=== PATIENT | female | born 1965 | race Caucasian/White ===

== ENCOUNTER 2016-06-02 18:53 | Inpatient (IN) ==
--- NOTE | 2016-06-02 19:16 | PROVIDER DOCUMENTATION ---
HPI-Abdominal Pain/GI Problem - General Chief Complaint: Abdominal Pain Stated Complaint: abd pain Time Seen by Provider: 06/02/16 19:11 Source: EMS Allergies/Adverse Reactions: Patient Allergies Allergy/AdvReac Type Severity Reaction Status Date / Time Penicillins Allergy Severe Unknown Verified 06/02/16 19:55 - History of Present Illness-ABD Nature of Presenting Problems: 50 y/o f presents to the ed with a distended abdomen due to liver disease. pt was brought in by ems for abdominal pain and bilateral lower extremity edema. upon arrival pt was not able to give us a hx. pt is altered, could not answer questions. Abdominal Pain Onset Location: reports: generalized abdomen Pain Radiation: reports: no radiation Quality of Pain: reports: pressure Severity in ED: reports: moderate Onset/Duration: reports: other (X 1 month) Similar Symptoms Previously?: Yes Recently seen or treated by another doctor?: No Review of Systems - Adult - REVIEW OF SYSTEMS - ADULT ROS:: limited per condition Constitutional: denies: chills, fever Gastrointestinal: reports: abdominal pain. denies: vomiting Neurological: denies: slurred speech, syncope Past History - Adult - PAST MEDICAL HISTORY-ADULT Review of Records: reports: Old Records Reviewed, Nursing Assessment Review, Medications Reviewed Respiratory: reports: asthma Neurological: reports: Seizures/Epilepsy - PRIOR SURGERIES/PROCEDURES Surgical/Procedure History: reports: - IMMUNIZATION STATUS Childhood Immunizations: See Nurse Assessment Flu Vaccine: See Nurse Assessment - SOCIAL HISTORY Smoking: cigarettes, less than 1 pack/day Provider spent 3-5 mins advising pt. on dangers of tobacco.: Discussed manners to quit use, and f/u contacts for add'l counseling. Substance Use: alcohol Alcohol Use Frequency: 5-6 times a week Physical Exam-General - PHYSICAL EXAM-ADULT Initial Vital Signs Reviewed: Yes - CONSTITUTIONAL General Appearance: lethargic, slow to respond, other (ill appearance) - EYES Eyes: PERRL/EOMI, pink conjunctivae - HEAD, EARS, NOSE, MOUTH & THROAT HENMT: normocephalic/atraumatic, moist mucous membranes, normal ENT inspection, TMs normal - RESPIRATORY Respiratory: chest non-tender, lungs clear, normal breath sounds - CARDIOVASCULAR Cardiovascular: normal peripheral pulses, regular rate, rhythm - GASTROINTESTINAL (ABDOMEN) Abdominal Exam: normal bowel sounds, distended, tenderness - MUSCULOSKELETAL Back Exam: normal inspection - SKIN Integumentary: other (grayish) - PSYCHIATRIC Psych/Mental Status: disoriented x 3 Progress - PLAN OF CARE/RESULTS Progress/Plan/Lab Results: plan of care: labs, imaging,admit as inpatient Laboratory Tests 06/02/16 06/02/16 06/02/16 19:23 19:23 19:23 WBC 4.11 L RBC 3.30 L Hgb 11.0 L Hct 32.9 L MCV 99.7 H MCH 33.3 H MCHC 33.4 RDW Std Deviation 15.3 H Plt Count 423 H MPV 9.2 Immature Gran % (Auto) 0.0 Neut % (Auto) 71.8 Lymph % (Auto) 16.8 L Barnwell % (Auto) 11.2 H Eos % (Auto) 0.0 Baso % (Auto) 0.2 Immature Gran # (Auto) 0.00 Neut # (Auto) 2.95 Lymph # (Auto) 0.69 L Barnwell # (Auto) 0.46 Eos # (Auto) 0.00 Baso # (Auto) 0.01 PT INR PTT (Actin FS) Sodium 128 L Potassium 3.2 L Chloride 89 L Carbon Dioxide 21 L Anion Gap 18 BUN 22 Creatinine 2.5 H Estimated GFR/1.73 m2 20 BUN/Creatinine Ratio 9 Glucose 127 H Calculated Osmolality 262 Calcium 7.8 L Total Bilirubin 1.40 H AST 35 H ALT 18 Alkaline Phosphatase 418 H Ammonia Total Protein 5.7 L Albumin 1.7 L Globulin 4.0 Albumin/Globulin Ratio 0.4 Lipase 6 L Plasma/Serum Ethyl Alc 06/02/16 06/02/16 19:23 19:23 WBC RBC Hgb Hct MCV MCH MCHC RDW Std Deviation Plt Count MPV Immature Gran % (Auto) Neut % (Auto) Lymph % (Auto) Barnwell % (Auto) Eos % (Auto) Baso % (Auto) Immature Gran # (Auto) Neut # (Auto) Lymph # (Auto) Barnwell # (Auto) Eos # (Auto) Baso # (Auto) PT 12.7 H INR 1.20 PTT (Actin FS) 26.4 Sodium Potassium Chloride Carbon Dioxide Anion Gap BUN Creatinine Estimated GFR/1.73 m2 BUN/Creatinine Ratio Glucose Calculated Osmolality Calcium Total Bilirubin AST ALT Alkaline Phosphatase Ammonia 115 H Total Protein Albumin Globulin Albumin/Globulin Ratio Lipase Plasma/Serum Ethyl Alc Orders Category Date Time Status CHEST-PORTABLE [RAD] Stat Exams 06/02/16 20:11 Taken HEAD W/O CONTRAST [CT] Stat Exams 06/02/16 19:19 Taken ALCOHOL BLOOD Stat Lab 06/02/16 19:23 Completed AMMONIA [CHEM] Stat Lab 06/02/16 19:23 Completed CBC WITH ELECTRONIC DIFF [HEME] Stat Lab 06/02/16 19:23 Completed CMP [COMPREHENSIVE METABOLIC PANEL] [CHEM] Stat Lab 06/02/16 19:23 Completed LIPASE [CHEM] Stat Lab 06/02/16 19:23 Completed PROTIME WITH INR [COAG] Stat Lab 06/02/16 19:23 Completed PTT [COAG] Stat Lab 06/02/16 19:23 Completed ROUTINE CULTURE [RM] Stat Lab 06/02/16 19:28 Uncollected UA NIMS W/REFLEX CULT [URINALYSIS] Stat Lab 06/02/16 19:12 Uncollected Lidocaine 1% [Xylocaine 1%] Med 06/02/16 20:34 Discontinued 20 ml INJ NOW ONE Lidocaine 1% [Xylocaine 1%] Med 06/02/16 20:35 Discontinued 40 ml .ROUTE .STK-MED ONE Ondansetron [Zofran] Med 06/02/16 20:25 Discontinued 8 mg IV NOW ONE Vital Signs - 24 hr 06/02/16 19:05 Temperature 97.6 F Pulse Rate 138 H Respiratory 20 Rate Blood Pressure 92/68 O2 Sat by Pulse 98 Oximetry - CT/MRI 1 MRI Study: Head MRI Results: NAD - CONSULTS/PCP/HOSPITALIST Notification #1 *Consult/PCP/Hospitalist*: Dr. Menjivar Time Discussed: 20:01 Consult Disposition: Admit Procedures - ADDITIONAL PROCEDURES Additional Procedure: Paracentesis (drained 40 cc) Departure - Departure Time of Disposition Order: 20:48 DIAGNOSIS: Hepatic encephalopathy, Alcoholic liver disease Ascites Qualifiers: Ascites type: other type Qualified Code(s): R18.8 - Other ascites Disposition: ADMITTED INPATIENT 09 Certified Medical Emergency: Emergent Condition: Stable Attestation - Scribe Verification/Attestation Scribe:: Jazmin Ferreira Acting as Scribe for:: Benito Carrington Scribe documention review:: This chart was documented by a scribe and accurately reflects the service the provider performed and the decisions made by the provider.
[2016-06-02 19:45] LABS: MANUAL DIFF NEEDED? NO
[2016-06-02 19:49] LABS: BASO% 0.2 % (0.0-0.8); HEMATOCRIT 32.9 % (37.0-47.0); LYMPH# 0.69 X1000 (1.2-3.4); LYMPH% 16.8 % (20.5-51.1); MCH 33.3 PG (27-31); MCHC 33.4 g/dL (33-37); MCV 99.7 FL (81-99); MONO# 0.46 X1000 (0.11-0.59); MONO% 11.2 % (1.7-9.3); MPV 9.2 FL (7.4-10.4); NEUT% 71.8 % (42.2-75.2); PLT 423 X1000 (130-400)
[2016-06-02 19:54] LABS: INR 1.2; PROTIME 12.7 Seconds (9.2-11.7); PTT 26.4 Seconds (22.0-36.0)
[2016-06-02 20:06] LABS: ALBUMIN 1.7 g/dL (3.5-5.0); CALCIUM 7.8 mg/dL (8.8-10.2); POTASSIUM 3.2 mmol/L (3.5-5.1); TOTAL BILIRUBIN 1.4 mg/dL (0.20-1.00); TOTAL PROTEIN 5.7 g/dL (6.3-8.3)
[2016-06-02] MEDS ORDERED: ZOFRAN IV ONE (20:25)
[2016-06-02] MEDS ORDERED: XYLOCAINE 1% INJ ONE (20:34)
[2016-06-02] MEDS ORDERED: XYLOCAINE 1% ONE (20:35)
[2016-06-02] MEDS ORDERED: SODIUM CHLORIDE 0.9% INJ ONE ×2 (20:53→21:37)
[2016-06-02] MEDS ORDERED: PROTONIX IV ONE (20:53)
[2016-06-02] MEDS ORDERED: M.V.I.-12 10 ML, FOLIC ACID 1 MG, MAGNESIUM SULFATE 1 GM, THIAMINE 100 MG in NS 1,000 ML IV ONE (21:37)
[2016-06-02] MEDS ORDERED: LEVAQUIN 750 MG/D5W 150 ML IV ONE (21:37)
[2016-06-02] MEDS: PROTONIX IV SCH (21:45)
[2016-06-02] MEDS ORDERED: THIAMINE IM SCH (21:45)
[2016-06-02] MEDS ORDERED: ALBUMIN 25% IV ONE (21:54)
[2016-06-02] MEDS ORDERED: POTASSIUM CHLORIDE 10 MEQ/SWI 100 ML IV ONE (21:57)
[2016-06-02] MEDS ORDERED: LEVOPHED 8 MG in D5 1/2 NS 250 ML IV SCH (22:00)
--- NOTE | 2016-06-02 22:23 | Diag Imaging Result Document ---
PROCEDURE NAME: HEAD W/O CONTRAST - 06/02/2016 STUDY: CT brain without. No parenchymal hemorrhage. No epidural or subdural hematoma. No subarachnoid hemorrhage. No mass identified on this noncontrasted exam. No hydrocephalus. No sinus opacification. No air fluid levels. IMPRESSION: 1. No hemorrhage. 2. Negative brain CT without contrast. A preliminary report was given at 8:06 p.m.
--- NOTE | 2016-06-02 23:05 | HISTORY AND PHYSICAL ---
PRIMARY CARE PHYSICIAN: No primary care physician. REASON FOR ADMISSION: Progressive weakness and abdominal distention with 2-day history of confusion. HISTORY OF PRESENT ILLNESS: Ms. Rosalie Faulkner is a 50-year-old lady with past medical history of alcoholic cirrhosis, atrial fibrillation, COPD, who was last admitted here in November 2015 for early sepsis and hepatic encephalopathy. She is brought in today by her mother whom she lives with and her son when they noticed that over the course of today she was very lethargic, unable to respond, difficult to arouse and very confused. Prior to this for the last 2-3 weeks, she has been having progressive abdominal distention and lower extremity swelling. She has been trying to ambulate with a walker the last few days. Family denies any hematemesis, coffee grounds , no bleeding per rectum or melanotic stools. No fever or chills noted. No complaints of abdominal pain. They state that she has been taking her medication and that her last alcohol drink was a few weeks ago. No seizure activity. No focal weakness, numbness or tingling per the mother. No fever or chills recorded. No hematuria or bleeding from any orifice per the mother. REVIEW OF SYSTEMS: Very limited due to the patient's current cognitive state. ALLERGIES: Penicillin. HOME MEDICATIONS: Folic acid, magnesium, thiamine, zinc sulfate. FAMILY HISTORY: Dad of alcoholic cirrhosis. No history of diabetes or heart disease in 1st degree relatives. SOCIAL HISTORY: Patient was still drinking a pint of liquor up until 2 to 3 weeks ago, smokes a pack a day. Still lives with her mother. SURGICAL HISTORY: , back surgery, breast biopsy. LABORATORY WORK: Her WBC 4000, hemoglobin and hematocrit 11 and 32. Platelets 423,000. Sodium 128, potassium 3.2, BUN 22, creatinine 2.5. Last creatinine on record was in November and was 7.5, anion gap is 18, glucose 127, calcium 7.8, total bilirubin 1.4. Alkaline phosphatase 418, ammonia 115, albumin is 1.7, total protein 5.7, lipase is normal. PT PTT INR 1.2. Alcohol level is undetected. Ascitic fluid was tapped and results are pending. PHYSICAL EXAMINATION: GENERAL: Chronically ill, cachectic middle-aged woman who appears older than stated age. The patient is drowsy, does not respond to her name. With sternal rub she may move her arms occasionally. VITAL SIGNS: Blood pressure 72/62, heart rate 139, respirations 19, she is afebrile, 96% on room air. HEENT: Head normocephalic, atraumatic. Eyes, the patient is PERRL, EOMI. She is anicteric. ENT and oropharyngeal exam could not be evaluated, because patient is very drowsy and not cooperative. No signs of cyanosis noted. NECK: Supple. No JVD or carotid bruit. No thyromegaly. SKIN: Turgor appears to be slightly diminished. CHEST: Clear to auscultation. Good air entry in both lung lazar. CARDIOVASCULAR: First and second heart sounds heard. No gallops, murmurs or rubs. Rhythm is regular. ABDOMEN: Distended. No guarding. No facial grimacing on palpation. No mass or organomegaly appreciated. Bowel sounds are not heart. RECTAL: Deferred at this time. EXTREMITIES: The patient has 2+ pitting edema up to her mid thigh. Pulses distally are diminished due to edema in her lower extremities. No clubbing or peripheral cyanosis. NEUROLOGIC: No focal deficits visually appreciated. When she is subjected to pain, she sporadically moves her arms. No myoclonus noted. Skin appears intact, although I did not examine her sacral area or her back due to the fact that she was undergoing a paracentesis and it was not convenient at that time. MUSCULOSKELETAL: Patient has noticeable diffuse atrophy of her extremities. ASSESSMENT: 1. Hepatic encephalopathy. Etiology could be secondary to hypokalemia, possible upper gastrointestinal bleed, possible spontaneous bacterial peritonitis. 2. Acute kidney injury? Hepatorenal syndrome type 1 (poor prognosis). 3. Alcoholic cirrhosis. 4. Alcohol abuse. 5. Hypotension? Probably secondary to occult gastrointestinal bleed. 6. Chronic obstructive pulmonary disease. 7. Hypokalemia. 8. Anemia of chronic inflammation. 9. Hyponatremia secondary to cirrhosis. PLAN: During my evaluation patient did vomit coffee grounds and I suspect she may be bleeding much worse than she is letting on. I informed the mother and the son who are both at bedside that her prognosis is grim, especially in light of renal failure superimposed on top of end-stage cirrhosis. For now, they cannot determine what her code status is going to be. For now, will start on pressors, transfuse if needed. Repeat another hemoglobin and hematocrit in a few hours and if her hematocrit drops precipitously, may transfuse depending on if the family wants everything done. We will also transfuse patient with albumin to see if this improves her intravascular volume and hopefully her renal function. Empiric IV proton pump inhibitor will be started. Empiric antibiotics will also be started as this has been shown to decrease mortality in cirrhotic patients with gastrointestinal bleed. We will await ascitic fluid analysis. We will give patient lactose enema to see if this improves her encephalopathy. Overall , her prognosis is very poor. Patient's MELD score is estimated to be about 19, although her overall clinical condition makes things even worse. She is not a candidate for liver transplant which limits her prognosis. TIME SPENT: Critical care time with this patient was estimated at 42 minutes. No intensive care unit bed at this time, but fortunately she will be managed in the emergency room pending a bed later today. JONO
[2016-06-02 23:19] LABS: HEMATOCRIT 28.5 % (37.0-47.0); HEMOGLOBIN 9.3 g/dL (12.0-16.0)
[2016-06-03 01:34] LABS: DIFF NEEDED? YES; WBC BF 1189 /cumm
[2016-06-03 01:51] LABS: MONOS 6 %; POLYS 94 %
[2016-06-03 05:30] LABS: TOTAL PROT BODY FLUID 0.6 g/dL
--- NOTE | 2016-06-03 08:26 | Diag Imaging Result Document ---
PROCEDURE NAME: CHEST-PORTABLE - 06/02/2016 PORTABLE CHEST: COMPARISON: 12/07/2015. FINDINGS: Poor inspiratory effort. The patient previous had a right-sided PICC line. There is none on the current exam. The heart is not enlarged. The vessels are not distended. No consolidation. No pleural effusions identified. IMPRESSION: 1. Poor inspiratory effort, otherwise negative chest. 2. Old injury to the right clavicle.
--- NOTE | 2016-06-03 08:29 | Diag Imaging Result Document ---
PROCEDURE NAME: CHEST-PORTABLE - 06/02/2016 PORTABLE CHEST: COMPARISON: Comparison is made to the study performed earlier. FINDINGS: Interval placement of a nasogastric tube. This overlies the esophagus and the stomach. No other interval changes. No free air beneath the diaphragm. IMPRESSION: Nasogastric tube is in good position.
[2016-06-03] MEDS ORDERED: SODIUM CHLORIDE 0.9% 10 ML ONE (10:36)
[2016-06-03] MEDS: PROTONIX IV SCH (10:40)
[2016-06-03] MEDS ORDERED: LEVOPHED 8 MG in D5 1/2 NS 250 ML IV SCH (11:45)
[2016-06-03] MEDS ORDERED: VANCOMYCIN IV PER PHARMACY MISC SCH (12:00)
[2016-06-03] MEDS ORDERED: AZACTAM 1 GM in NS 50 ML IV SCH (12:00)
[2016-06-03] MEDS ORDERED: LACTULOSE PO SCH ×2 (12:00→13:15)
[2016-06-03] MEDS ORDERED: XIFAXAN GT SCH (12:00)
[2016-06-03] MEDS ORDERED: PROTONIX 80 MG in NS 80 ML IV SCH ×4 (12:30)
[2016-06-03] MEDS ORDERED: PROTONIX 80 MG in NS 80 ML IV ONE (12:30)
[2016-06-03] MEDS ORDERED: SANDOSTATIN IV ONE (13:11)
[2016-06-03 13:17] VITALS: BP 80/51
--- NOTE | 2016-06-03 13:37 | PROGRESS NOTE ---
DATE: 06/03/2016 This morning, Ms. Griffin condition continues to be extremely critical. She is completely altered and unresponsive. OBJECTIVE: Vital signs: Blood pressure is 82/53, pulse of 122, respirations 22. Temperature is 98.3, and patient is saturating 93% on O2. Objectively: Ms. Faulkner is a 50-year-old, female. She is in bed, nonresponsive and hypotensive. Mucosa is dry, anicteric and acyanotic. Neck: Supple. Chest: Air entry is bilaterally reduced. A few bibasilar crepitations. Cardiovascular: Tachycardic but is no murmurs. Abdomen: Globally distended. Bowel sounds are decreased. There is fluid on percussion. Extremities: 3+ pedal edema. BAKERY DELIVERER: Patient remains stuporous and minimally moves her lower extremity to painful stimuli. LABORATORY DATA: There is no CBC for this morning. Chemistry: None today. The labs yesterday were reviewed. ASSESSMENT: 1. Altered mental status likely due to global encephalopathy from metabolic causes including hepatic encephalopathy as well as sepsis. 2. Hypotension likely due to sepsis. 3. SBP. 4. GI bleed. 5. Cirrhosis of the liver. 6. Multiorgan failure. 7. Acute kidney injury. PLAN: Patient's condition continues to be extremely critical. I spoke with the family for more than 30 minutes explaining to them the critical nature of Ms. Griffin disease process at this point. They do understand how critical she is however they have not decided on how aggressive they want to go. I did explain to them that if even we intubate her and do more invasive procedures there is still not any hope that she might recover from this critical illness. However if we do not do anything we know that the inevitable of the end will come sooner. They are going to meet and make a decision as to how aggressive they want us to go. In the meantime, we are going to treat her as if she is full code. The patient already has an NG tube which shows some coffee ground. We are going to start her on PPI drip. We are going to start her also on Levophed drip. We will start her on antibiotics including levofloxacin, aztreonam and vancomycin since she is allergic to penicillins. We hope to cover gram negatives and grams positives. I think if patient is septic, which her picture seems to be, it is being driven more from GI pathogens and I am hopeful that the aztreonam with the levofloxacin will have a very good coverage for this. Blood cultures have been done. We will also give the patient infusion of albumin. If her medical condition stabilizes and her vitals are stable we will be able to do a large volume paracenteses to at least help with some of the fluid management. Critical time spent was 46 minutes.
[2016-06-03] MEDS ORDERED: VANCOMYCIN 1.5 GM in NS 250 ML IV ONE (14:00)
[2016-06-03] MEDS ORDERED: SANDOSTATIN 500 MICROGM in D5W 100 ML IV SCH (14:30)
--- NOTE | 2016-06-03 19:57 | CONSULTATION ---
DATE OF CONSULTATION: 06/03/2016 REFERRING PHYSICIAN: Clinton Wakefield MD PRIMARY CARE PHYSICIAN: None. INDICATION FOR CONSULTATION: 1. Altered mental status. 2. Hepatic encephalopathy. 3. Alcohol liver disease. 4. Ascites. 5. Spontaneous bacterial peritonitis. 6. Gastrointestinal bleed. HISTORY OF PRESENT ILLNESS: The patient is a 50-year-old white female with long-standing alcoholism who is actively drinking. She also has a history of peptic ulcer disease, fatty liver disease, Tosha esophagitis, diverticulitis and erosive gastritis. According to her son, over the last 2 weeks, she has had progressive weakness. Two days prior to admission, she developed confusion, but did not want to come to the emergency room. After the confusion persisted, her family brought her by ambulance to the emergency room. Upon arrival, she was noted to be confused and had tense ascites. Paracentesis was performed and the results are consistent with spontaneous bacterial peritonitis. She was also noted to have coffee-ground material in her NG tube with a progressive drop in her hemoglobin. Overnight, the patient has remained hypotensive and has had evidence of multiorgan failure. It should be noted, that the son reports a pressure ulcer on her buttocks which is new. He reports that she has never had a pressure sore before. Of note, in her admission in November 2015, the patient was adamant that she did not want any more invasive procedures. We are asked to participate in her care. PAST MEDICAL HISTORY: 1. Alcohol liver disease. 2. COPD. 3. Diverticulosis. 4. Diverticulitis. 5. Fatty liver with acute hepatitis, but no cirrhosis on her liver biopsy in May 2015. 6. Tosha esophagitis. 7. Erosive gastritis. 8. Duodenitis. 9. Atrial fibrillation. 10. Urinary tract infection. 11. Alcoholic encephalopathy. PAST SURGICAL HISTORY: 1. . 2. Lumpectomy for benign breast disease. 3. Back surgery. MEDICATION ALLERGIES: Penicillin. HOME MEDICATIONS: 1. Zinc sulfate. 2. Vitamin B1 (thiamine). 3. Slow-Mag. 4. Folic acid. FAMILY HISTORY: Remarkable that her father from cirrhosis. SOCIAL HISTORY: She drinks 1-2 pints of vodka per day. She smokes 1 pack of cigarettes per day. There is no history of recreational drug use. PHYSICAL EXAMINATION: Vital signs: On exam, her blood pressure is 79/50, pulse of 123, respiration 33-36, oxygen saturation of 92%. General: She is nonresponsive. HEENT: Her conjunctivae are pale. Her sclerae are anicteric. Oropharyngeal mucosa membranes are dry. She has a nasogastric tube that is producing maroon to coffee-ground material. Neck: Is supple. Pulmonary: She has inspiratory and expiratory wheezes with scattered rhonchi. Her respirations are very shallow. Cardiovascular: She has a tachycardia with no gallops. Her heart sounds are distant due to the pulmonary sounds. Abdominal: Reveals a distended abdomen with obvious ascites. There are bowel sounds, but they are hypoactive. Extremities: Bilaterally are remarkable for edema. OBJECTIVE DATA: Reveals a hemoglobin of 9.3 with hematocrit of 28.5. Earlier, her CBC from 1922 on 06/02/2016 reveals a hemoglobin of 11 with hematocrit of 32.9, and a white count of 4.11. She has 423,000 platelets. On 06/02/2016, her PT was 12.7 with an INR of 1.20 and a PTT of 26.4. Also on 06/02/2016, sodium is 128, potassium 3.2, chloride 89, CO2 of 21, BUN 22, creatinine 2.5 with a glucose of 127. Calcium is 7.8, total bilirubin 1.40, AST 35, ALT 18, alkaline phosphatase 418, total protein 5.7, albumin 1.7. Her lipase is 6. Her plasma alcohol level is undetectable. IMPRESSION: 1. Altered mental status. 2. Hepatic encephalopathy. 3. Spontaneous bacterial peritonitis. 4. Gastrointestinal bleed. 5. Multiorgan failure. RECOMMENDATION: 1. The patient's overall prognosis is rather grim in light of her hypotension and active infection. It appears that she is in extreme clinical decline which may not be reversible. This was discussed with her son and her mother. 2. Begin Protonix drip for the next 72 hours and then q.12 hours as indicated. 3. Begin an octreotide drip. She has a history of gastrointestinal bleeding. This may reduce the splanchnic pressure as I suspect her severe liver fibrosis has probably progressed to cirrhosis. 4. I agree with aztreonam, Levaquin and vancomycin. 5. Agree with pressor support. Per the patient's request when she was alert and oriented as well as the family's request, there will be no intubation or cardiopulmonary resuscitation. The patient was adamant last admission that she did not want any more invasive procedures. 6. I agree with Xifaxan as you are doing. 7. To help with the hepatic encephalopathy, I would increase her lactulose to q.4 hours until she is defecating and then reduce the dose such that she is having 2-4 soft bowel movements per day. 8. In terms of her overall prognosis, I visited with both her mother, her son, her family at the bedside and expressed concerns about her surviving. I will continue to follow along with you during this hospital course. Our recommendations were discussed with Dr. Panchal.
[2016-06-04] MEDS ORDERED: LEVAQUIN 500 MG/D5W 100 ML IV SCH (06:00)
[2016-06-04] MEDS ORDERED: ALBUMIN 25% IV SCH (09:00)
[2016-06-05] MEDS ORDERED: VANCOMYCIN 1 GM/NS 250 ML IV SCH (14:00)
[2016-06-06] MEDS ORDERED: PROTONIX IV SCH (13:00)
--- NOTE | 2016-06-07 06:42 | DISCHARGE SUMMARY ---
ADMISSION DATE: 06/02/2016 DISCHARGE DATE: 06/03/2016 SUMMARY: INVASIVE PROCEDURES: Done during this admission, diagnostic paracentesis was done. CONSULTATIONS: During this admission, GI was consulted. Patient was seen by Dr. Gretchen Dimas MD. DATE AND TIME OF : 06/03/2016 at 1352. ADMISSION DIAGNOSES: 1. Hepatic encephalopathy. 2. Acute kidney injury. 3. Alcoholic cirrhosis. 4. Hypertension. 5. Hyponatremia. DIAGNOSIS AT TIME OF : 1. Multiorgan failure. 2. Altered mental status due to global encephalopathy from hepatic encephalopathy and sepsis. 3. Septic shock. 4. Spontaneous bacterial peritonitis. 5. Gastrointestinal bleed. 6. Cirrhosis of the liver secondary to alcohol abuse. 7. Acute kidney injury. IMAGING STUDIES: Done at the time of admission, a CT scan of the head was done which showed no hemorrhage, negative CT brain. A chest x-ray was done also on admission that shows poor inspiratory effort. Old injury to the clavicle. PRESENTING COMPLAINT: Progressive weakness and abdominal distention. HISTORY OF PRESENTING COMPLAINT: Ms. Faulkner is a 50-year-old, female, history of atrial fibrillation, COPD, alcoholic cirrhosis, who presented to the emergency department with the family members complaining of patient being progressively weak, abdominal distention and very confused. Upon presentation, patient was assessed and found to be in hepatic encephalopathy with other multiple organs failing and was admitted for further medical care. HOSPITAL COURSE: The patient was admitted, was not even sent to the floor since there was no bed. Most of her care was taken care of in the emergency department. I saw the patient the following day after admission. She was looking extremely critical. I spoke with the family members for more than 30 minutes. At the end of the conversation they were not sure about the DNR status. However, later on, they told the nurse that they would prefer the patient to be DNR. We did initiate Protonix pump and other measures for her comorbidity. However, I did explain to the family members the poor prognosis, even if we do heroic measures. Later on in the afternoon, I went down to review the patient. The patient continued to be extremely critical and the family members had decided to make her comfort measures only. At about 1:50, the attending nurse called and told me that the patient was showing active signs of . At 1352, patient was pronounced by the attending physician with another nurse.
== END 2016-06-03 16:30 | disposition expired | DRG 871 ==
LOC: EDBD → ED 18:53 → EDIPHOLD 06-03 00:54
PROVIDERS: ATTEND Internal Medicine
PROC: 0W9G3ZZ Drainage of Peritoneal Cavity, Percutaneous Approach (ICD-10-PCS; principal; 2016-06-03)
DX: A41.9 Sepsis, unspecified organism (principal); G93.41 Metabolic encephalopathy; N17.9 Acute kidney failure, unspecified; R64 Cachexia; K65.2 Spontaneous bacterial peritonitis; K92.0 Hematemesis; K70.31 Alcoholic cirrhosis of liver with ascites; E87.1 Hypo-osmolality and hyponatremia; K72.90 Hepatic failure, unspecified without coma; R65.20 Severe sepsis without septic shock; I48.91 Unspecified atrial fibrillation; E87.6 Hypokalemia; J44.9 Chronic obstructive pulmonary disease, unspecified; F17.210 Nicotine dependence, cigarettes, uncomplicated; Z66 Do not resuscitate; Z79.899 Other long term (current) drug therapy; Z88.0 Allergy status to penicillin; Z87.11 Personal history of peptic ulcer disease
CPT/HCPCS: 51702; 70450; 71010; 80053; 82042; 82140; 82150; 82945; 83690; 83735; 84157; 85014; 85018; 85025; 85610; 85730; 86850; 86900; 86901; 87040; 87070; 87077; 89051; 96365; 96366; 96367; 96368; 96375; 96376; C9113; G0480; J2354; J2405; J3370; J3411; J3475; J3480; J7030; J7050; J7060; S0073; 99285-25; P9047; S0164